=== PATIENT | female | born 1985 | race Caucasian/White ===

== ENCOUNTER 2023-05-21 06:59 | Day surgery (SDC) | payer MEDICAID, MEDICARE, OTHER ==
[2023-05-21] MEDS ORDERED: Propofol 200 MG/20 ML SDV IV ONE (07:00)
[2023-05-21] MEDS ORDERED: Sodium Chloride 0.9% 10 ML Syringe FLUSH PRN (07:00)
[2023-05-21] MEDS: Lactated Ringers 1,000 ML IV SCH (08:00)
[2023-05-21] MEDS ORDERED: Propofol 200 MG/20 ML SDV ONE ×2 (08:03→08:47)
[2023-05-21] MEDS ORDERED: Midazolam 1 MG/ML 2 ML SDV ONE (08:03)
[2023-05-21 11:07] VITALS: BP 104/68; PULSE 61
== END 2023-05-21 10:28 | disposition home or self-care (01) ==
LOC: KA.SDS 06:59
PROVIDERS: ATTEND Family Medicine
DX: D12.8 Benign neoplasm of rectum (principal); K63.5 Polyp of colon; K63.89 Other specified diseases of intestine; K57.30 Diverticulosis of large intestine without perforation or abscess without bleeding; K64.4 Residual hemorrhoidal skin tags; K64.8 Other hemorrhoids; E66.01 Morbid (severe) obesity due to excess calories; Z90.49 Acquired absence of other specified parts of digestive tract; Z87.19 Personal history of other diseases of the digestive system; Z79.899 Other long term (current) drug therapy; Z88.0 Allergy status to penicillin; Z88.8 Allergy status to other drugs, medicaments and biological substances; Z91.013 Allergy to seafood; Z91.018 Allergy to other foods; Z98.890 Other specified postprocedural states; Z68.42 Body mass index [BMI] 45.0-49.9, adult
CPT/HCPCS: 00811; 45380; J2250; J2704; J7120